=== PATIENT | female | born 1970 | race Caucasian/White ===

== ENCOUNTER → 2016-07-27 | Outpatient (CLI) | payer MEDICAID ==
[~2016-07-27] VITALS: Ht 156.2 cm; Wt 109.1 kg
[~2016-07-27] MED LIST: ALEVE220 MG PO; BACTRIM DS 8001 TAB PO; COLACE 100100 MG/CAP PO; DOXYCYCLINE 10100 MG PO; HAIRSKINNAILS PO; MULTIPLE VITAMI1 CAP PO; NO HOME MEDICATIONS; NORCO 325 MG-51 TAB PO; PERCOCET 325 MG1 TAB PO; PRAVACHOL10 MG PO; PREDNISONE20 M1 PO; PROBIOTIC FORMU1 CAP PO; PROTONIX20 MG PO; VITAMIN C500 MG PO; ZOFRAN 4MG T4 MG/TAB PO
== END ==
LOC: LIGHT 13:00
DX: Z53.9 Procedure and treatment not carried out, unspecified reason (principal)

== ENCOUNTER 2016-08-05 08:36 | Day surgery (SDC) | payer MEDICAID ==
[~2016-08-05] VITALS: Ht 154.9 cm; Wt 109.7 kg
[2016-08-05] VITALS (7 sets, daily range): BP systolic 113–143; BP diastolic 56–89; PULSE 74–95; TEMP 97.8–98.6
[~2016-08-05 08:36] MED LIST changes: -COLACE 100100 MG/CAP PO; -HAIRSKINNAILS PO; -MULTIPLE VITAMI1 CAP PO; -PROBIOTIC FORMU1 CAP PO; -PROTONIX20 MG PO; -VITAMIN C500 MG PO
[2016-08-05] MEDS ORDERED: PROTONIX20 MG PO (09:49)
[2016-08-06 02:00] VITALS: BP 116/61; PULSE 75; TEMP 98.5
[2016-08-06 06:04] VITALS: BP 124/65; PULSE 65; TEMP 98.3
[2016-08-06 09:51] VITALS: BP 114/65; PULSE 62; TEMP 98.1
[2016-09-07] MEDS ORDERED: VITAMIN C500 MG PO (16:11)
[2016-09-07] MEDS ORDERED: HAIRSKINNAILS PO (16:11)
[2016-09-07] MEDS ORDERED: MULTIPLE VITAMI1 CAP PO (16:11)
[2016-09-07] MEDS ORDERED: COLACE 100100 MG/CAP PO (16:12)
[2016-09-07] MEDS ORDERED: PROBIOTIC FORMU1 CAP PO (16:12)
== END 2016-08-06 13:56 | disposition home or self-care (01) ==
LOC: SDCO 08:36 → SURG 14:40 → SDCO 08-06 13:56
DX: E66.01 Morbid (severe) obesity due to excess calories (principal); Z68.41 Body mass index [BMI] 40.0-44.9, adult; E78.00 Pure hypercholesterolemia, unspecified; Z79.899 Other long term (current) drug therapy; G89.29 Other chronic pain; F17.200 Nicotine dependence, unspecified, uncomplicated
CPT/HCPCS: OP; A9284; J0360; J0690; J1100; J1170; J1885; J2405; J2550; J2704; J2710; J3010; J7042; J7120; Q9968

== ENCOUNTER → 2016-08-10 | Outpatient (CLI) | payer MEDICAID ==
[~2016-08-10] VITALS: Ht 156.2 cm; Wt 104.8 kg
[~2016-08-10] MED LIST changes: +COLACE 100100 MG/CAP PO; +HAIRSKINNAILS PO; +MULTIPLE VITAMI1 CAP PO; +PROBIOTIC FORMU1 CAP PO; +PROTONIX20 MG PO; +VITAMIN C500 MG PO
[2016-08-10 14:56] VITALS: BP 136/72; PULSE 93
== END ==
LOC: LIGHT 13:21
DX: E78.4 Other hyperlipidemia (principal); R73.01 Impaired fasting glucose; E66.01 Morbid (severe) obesity due to excess calories; Z68.41 Body mass index [BMI] 40.0-44.9, adult; G43.809 Other migraine, not intractable, without status migrainosus

== ENCOUNTER → 2016-09-07 | Outpatient (CLI) | payer MEDICAID ==
[~2016-09-07] VITALS: Ht 156.2 cm; Wt 99.8 kg
[2016-09-07 16:12] VITALS: BP 95/54; PULSE 71
== END ==
LOC: LIGHT 14:46
DX: E78.4 Other hyperlipidemia (principal); R73.01 Impaired fasting glucose; G43.809 Other migraine, not intractable, without status migrainosus; E66.01 Morbid (severe) obesity due to excess calories; Z68.41 Body mass index [BMI] 40.0-44.9, adult; Z90.49 Acquired absence of other specified parts of digestive tract

== ENCOUNTER → 2016-11-16 | Outpatient (CLI) | payer MEDICAID ==
[~2016-11-16] VITALS: Ht 156.2 cm; Wt 92.8 kg
[2016-11-16 16:50] VITALS: BP 107/66; PULSE 75
== END ==
LOC: LIGHT 11-02 11:23
DX: E78.5 Hyperlipidemia, unspecified (principal); R73.01 Impaired fasting glucose; E66.01 Morbid (severe) obesity due to excess calories; Z68.38 Body mass index [BMI] 38.0-38.9, adult; Z71.3 Dietary counseling and surveillance; G43.909 Migraine, unspecified, not intractable, without status migrainosus

== ENCOUNTER → 2017-02-08 | Outpatient (CLI) | payer MEDICAID ==
[~2017-02-08] VITALS: Ht 156.2 cm; Wt 85.5 kg
[2017-02-08 15:23] VITALS: BP 114/50; PULSE 72
== END ==
LOC: LIGHT 10:42
DX: E78.5 Hyperlipidemia, unspecified (principal); R73.01 Impaired fasting glucose; E66.01 Morbid (severe) obesity due to excess calories; Z68.35 Body mass index [BMI] 35.0-35.9, adult; Z71.3 Dietary counseling and surveillance; G43.909 Migraine, unspecified, not intractable, without status migrainosus

== ENCOUNTER → 2017-09-06 | Outpatient (CLI) | payer MEDICAID ==
[~2017-09-06] VITALS: Ht 156.2 cm; Wt 80.5 kg
[~2017-09-06] MED LIST changes: +MAVYRET PO; +MIRALAX PA17 GM/Dose PO
[2017-09-06 15:20] VITALS: BP 102/60; PULSE 72
== END ==
LOC: LIGHT 08-09 09:24
DX: E78.5 Hyperlipidemia, unspecified (principal); R73.01 Impaired fasting glucose; E66.01 Morbid (severe) obesity due to excess calories; Z68.33 Body mass index [BMI] 33.0-33.9, adult; Z71.3 Dietary counseling and surveillance; G43.909 Migraine, unspecified, not intractable, without status migrainosus
CPT/HCPCS: G0463